=== PATIENT | female | born 1965 | race Two or more races ===

== ENCOUNTER 2024-06-25 06:45 | Day surgery (SDC) | payer OTHER ==
[2024-06-20 11:26] VITALS: BP 122/83
[2024-06-20 11:33] LABS: PH,URINE 6.5; URINE BILIRRUBIN NEGATIVE (NEGATIVE); URINE BLOOD MODERATE; URINE GLUCOSE NEGATIVE (NEGATIVE); URINE KETONE NEGATIVE (NEGATIVE); URINE LEUKOCYTE NEGATIVE; URINE NITRATE NEGATIVE; URINE PROTEIN NEGATIVE (NEGATIVE); URINE UROBILINOGEN 0.2 E.U./dl
[2024-06-20 11:35] LABS: HEMATOCRIT 35.8 % (36.0-45.00); HEMOGLOBIN 12.4 g/dL (12.0-15.00); MEAN CELL VOLUME 83.5 fL (80.00-100.00); MEAN CORPUSCULAR HGB CONC 34.8 g/dl (32.0-36.0); PLATELET COUNT 298 K/uL (150-450); RED BLOOD COUNT 4.28 M/uL (4.00-6.00); RED CELL DISTRIBUTION WIDTH 13.8 % (11.5-14.5)
[2024-06-20 11:51] LABS: INR 1.1; PARTIAL THROMBOPLASTIN TIME 29.6 SECONDS (22.0-34.0); PROTHROMBIN TIME 11.9 SECONDS (9.0-11.5)
[2024-06-20 12:16] LABS: URINE APPEARANCE SL CLOUDY; URINE COLOR YELLOW
[2024-06-20 12:17] LABS: URINE BACTERIA MANY; URINE MUCUS NEGATIVE
[2024-06-20 12:18] LABS: URINE RBC 26-35 /HPF
[2024-06-20 12:36] LABS: ALBUMIN 3.7 gm/dL (3.4-5.0); BILIRUBIN TOTAL 0.46 mg/dL (0.3-1.2); BILIRUBIN,CONJUGATED 0.16 mg/dL (0.0-0.2); BILIRUBIN,UNCONJUGATED 0.3 mg/dL (0.0-0.6); CALCIUM 9.6 mg/dL (8.5-10.1); CREATININE SERUM 0.54 mg/dL (0.55-1.02); GFR 114.77; GLOBULINA 4.1 G/DL (2.4-3.5); POTASSIUM 3.5 mEq/L (3.5-5.1); TOTAL PROTEIN 7.8 gm/dL (6.4-8.2)
[~2024-06-25] VITALS: Ht 160 cm; Wt 72.6 kg
[~2024-06-25 06:45] MED LIST: ALBUTEROL0.63 MG/3; ALLERGY RELIE15.8 ML; ARNUITY ELLIPT50 MCG IH; CHLORTHALIDONE; ECOTRIN81 MG PO; ESTRADIOL VAG; EZALLOR SPRINKL10 MG PO; IVERMECTIN3 MG; NP THYROID60 MG; PRAX237 ML; PROMETRIUM200 MG PO; UCERIS9 MG; XARELTO10 MG
[2024-06-25] MEDS ORDERED: CEFOXITIN SODIUM 1,000 MG VIAL IV ONE (09:15)
[2024-06-25] MEDS ORDERED: BUPIVACAINE HCL 30 ML VIAL IJ ONE (09:15)
[2024-06-25] MEDS ORDERED: LIDOCAINE HCL 1%/EPINEPHRINE 20ML VIAL IJ ONE (09:15)
[2024-06-25] MEDS ORDERED: TRAMADOL HCL50 MG PO (10:37)
[2024-06-25] MEDS ORDERED: PROTONIX40 MG PO (10:38)
[2024-06-25] MEDS ORDERED: MORPHINE SULFATE 4 MG/ML VIAL IV ONE ×2 (10:45→11:15)
== END 2024-06-25 12:45 | disposition home or self-care (01) ==
LOC: CIR.AMB 06:45
PROVIDERS: ATTEND Surgery
DX: K80.10 Calculus of gallbladder with chronic cholecystitis without obstruction (principal)